=== PATIENT | female | born 1985 | race Caucasian/White ===

== ENCOUNTER 2016-10-12 12:12 | Inpatient (IN) | payer BC, OTHER ==
[~2016-10-12] VITALS: Ht 167.6 cm; Wt 66.2 kg
[2016-10-12] VITALS (16 sets, daily range): BP systolic 103–164; BP diastolic 62–93
[2016-10-12 13:24] LABS: EOSINOPHIL COUNT 0.1 K/uL (0-0.3); HEMATOCRIT 33.6 % (36.0-46.0); IMMATURE GRANULOCYTE (%) 0.7 % (0.0-0.7); IMMATURE GRANULOCYTE COUNT 0.1 K/uL; LYMPHOCYTE COUNT 2.3 K/uL (1.0-2.8); MCH 32.4 PG (29.0-34.0); MCV 90.1 FL (83-99); MEAN PLAT.VOLUME 10.6 uM^3 (9.5-12.4); MONOCYTE COUNT 0.7 K/uL (0-0.8); NEUTROPHIL (%) 68.4 % (45-76); PLATELET COUNT 190 K/uL (156-360); RBC DIS.WIDTH-CV 12.9 % (11.8-14.6); RBC DIS.WIDTH-SD 42.1 % (39-53); RED BLOOD COUNT 3.73 M/uL (3.80-5.20); WHITE BLOOD COUNT 10.3 K/uL (4.1-10.2)
[2016-10-12] MEDS ORDERED: PRENATAL TABLE1 EAC3 PO (13:41)
[2016-10-13 06:43] LABS: EOSINOPHIL (%) 0.2 % (0-5); EOSINOPHIL COUNT 0.1 K/uL (0-0.3); HEMATOCRIT 28.7 % (36.0-46.0); IMMATURE GRANULOCYTE (%) 0.7 % (0.0-0.7); IMMATURE GRANULOCYTE COUNT 0.1 K/uL; INSTRUMENT ABS NEUTROPHIL CT 16.3 K/uL; MCH 33.4 PG (29.0-34.0); MCHC 36.9 G/DL (30.0-36.0); MCV 90.5 FL (83-99); MEAN PLAT.VOLUME 11.1 uM^3 (9.5-12.4); MONOCYTE (%) 6.9 % (3-12); MONOCYTE COUNT 1.4 K/uL (0-0.8); NEUTROPHIL (%) 77.8 % (45-76); NEUTROPHIL COUNT 16.3 K/uL (1.8-6.4); PLATELET COUNT 213 K/uL (156-360); RBC DIS.WIDTH-CV 12.8 % (11.8-14.6); RBC DIS.WIDTH-SD 42.3 % (39-53); RED BLOOD COUNT 3.17 M/uL (3.80-5.20)
[2016-10-13 08:31] VITALS: BP 107/55
[2016-10-13 14:39] VITALS: BP 93/50
[2016-10-13 23:23] VITALS: BP 114/79
[2016-10-14] MEDS ORDERED: IBUPROFEN800 MG PO (10:33)
[2016-10-14] MEDS ORDERED: CAMILA0.35 MG PO (10:33)
== END 2016-10-14 14:00 | disposition home or self-care (01) | DRG 775 ==
LOC: LDRP-OP 12:12 → 2WEST 12:13 → LDRP-OP 11-14 16:21
PROVIDERS: Advanced Practice Midwife; Obstetrics & Gynecology
PROC: 3E033VJ Introduction of Other Hormone into Peripheral Vein, Percutaneous Approach (ICD-10-PCS; principal; 2016-10-12)
PROC: 3E0P7GC Introduction of Other Therapeutic Substance into Female Reproductive, Via Natural or Artificial Opening (ICD-10-PCS; principal; 2016-10-12)
PROC: 00HU33Z Insertion of Infusion Device into Spinal Canal, Percutaneous Approach (ICD-10-PCS; principal; 2016-10-12)
PROC: 10E0XZZ Delivery of Products of Conception, External Approach (ICD-10-PCS; principal; 2016-10-12)
PROC: 3E0S3CZ (ICD-10-PCS; principal; 2016-10-12)
PROC: 10907ZC Drainage of Amniotic Fluid, Therapeutic from Products of Conception, Via Natural or Artificial Opening (ICD-10-PCS; principal; 2016-10-12)
DX: O71.4 Obstetric high vaginal laceration alone (principal); O71.82 Other specified trauma to perineum and vulva; Z3A.39 39 weeks gestation of pregnancy; Z37.0 Single live birth; O69.2XX0 Labor and delivery complicated by other cord entanglement, with compression, not applicable or unspecified; D62 Acute posthemorrhagic anemia; O99.02 Anemia complicating childbirth; F17.200 Nicotine dependence, unspecified, uncomplicated; O99.334 Smoking (tobacco) complicating childbirth
CPT/HCPCS: 85025; C1726; C1755; J3010; J7120